=== PATIENT | male | born 1960 | race Caucasian/White ===

== ENCOUNTER → 2018-01-21 19:51 | Emergency (ER) | payer OTHER ==
[~2018-01-21 19:51] MED LIST: diPHENhydraMINE PO* 25 MG PO ONE
--- NOTE | 2018-01-21 21:36 | ED ---
Skin Complaint - HPI Summary HPI Summary: Pt is a y/o male who presents to the ED s/p insect sting. He states 2 days ago he was working on his house when he felt something sting his lower back. The area is red and raised, but not painful. - History of Current Complaint Chief Complaint: EDRashSkinAbscess Time Seen by Provider: 01/21/18 21:05 Stated Complaint: INSECT BITE Hx Obtained From: Patient Onset/Duration: Started Days Ago - 2, Still Present Timing: Constant Current Severity: Mild Pain Intensity: 2 Pain Scale Used: 0-10 Numeric Skin Location: Other: - Lower back Character: Redness, Raised Aggravating Symptom(s): Other: - Insect sting Associated Signs & Symptoms: Negative Related History: Insect Bite/Sting - Allergy/Home Medications Allergies/Adverse Reactions: Allergies Allergy/AdvReac Type Severity Reaction Status Date / Time No Known Allergies Allergy Verified 01/21/18 20:04 PMH/Surg Hx/FS Hx/Imm Hx Endocrine/Hematology History: Reports: Hx Diabetes Cardiovascular History: Denies: Hx Hypertension Infectious Disease History: No Infectious Disease History: Denies: Traveled Outside the [place] in Last 30 Days - Family History Known Family History: Negative: Blood Disorder - Social History Alcohol Use: Occasionally Hx Substance Use: No Substance Use Type: Reports: None Hx Tobacco Use: Yes Smoking Status (MU): Light Every Day Tobacco Smoker Type: Cigars Review of Systems Negative: Fever Positive: Other - Insect sting, red and raised All Other Systems Reviewed And Are Negative: Yes Physical Exam - Summary Physical Exam Summary: Appearance: Well appearing, no pain distress Skin: warm, dry, reflects adequate perfusion, raised erythematous area 2 cm across without warmth on lower back Head/face: normal Eyes: EOMI, FELISA ENT: mucous membranes moist Neck: supple, non-tender Respiratory: CTA, breath sounds present Cardiovascular: RRR, pulses symmetrical Abdomen: non-tender, soft Bowel Sounds: present Musculoskeletal: normal, strength/ROM intact Neuro: normal, sensory motor intact, A&Ox3 Triage Information Reviewed: Yes Vital Signs On Initial Exam: Initial Vitals Temp Pulse Resp BP Pulse Ox 97.9 F 88 20 133/78 95 01/21/18 20:03 01/21/18 20:03 01/21/18 20:03 01/21/18 20:03 01/21/18 20:03 Vital Signs Reviewed: Yes Diagnostics - Vital Signs Vital Signs Temp Pulse Resp BP Pulse Ox 01/21/18 20:03 97.9 F 88 20 133/78 95 - Laboratory Lab Statement: Any lab studies that have been ordered have been reviewed, and results considered in the medical decision making process. Course/Dx - Course Course Of Treatment: Patient reports a bee or wasp and ensure that stung him. He is diabetic. His sugars have not been out of control. He has localized discomfort in the area. No stinger was present. He was treated with topical hydrocortisone and Benadryl. - Diagnoses Provider Diagnoses: Insect bite of lower back with local reaction Discharge - Sign-Out/Discharge Documenting (check all that apply): Patient Departure - Discharge - Discharge Plan Condition: Improved Disposition: HOME Patient Education Materials: Insect Bite or Sting (ED) Referrals: Care [facility] [Outside] [facility] [Outside] Additional Instructions: Use topical hydrocortisone 1% ointment to the area. Return if worse, uncontrolled blood sugars or other concerns. Primary care referral has been given to you. Follow up with your doctor if you have one. - Billing Disposition and Condition Condition: IMPROVED Disposition: Home - Attestation Statements Document Initiated by Scribe: Yes Documenting Scribe: Jessie Arguello Provider For Whom Scribe is Documenting (Include Credential): Kingsley May MD Scribe Attestation: Jessie Lopez, scribed for Kingsley May MD on 01/21/18 at 2236. Scribe Documentation Reviewed: Yes Provider Attestation: The documentation as recorded by the Jessie loera accurately reflects the service I personally performed and the decisions made by Kingsley novak MD
[2018-01-21 21:41] VITALS: BP 125/82
== END | disposition home or self-care (01) ==
LOC: ED 19:51
DX: T63.441A Toxic effect of venom of bees, accidental (unintentional), initial encounter (principal); W57.XXXA Bitten or stung by nonvenomous insect and other nonvenomous arthropods, initial encounter; Y92.9 Unspecified place or not applicable; F17.210 Nicotine dependence, cigarettes, uncomplicated
CPT/HCPCS: 99281; A9270-GY

== ENCOUNTER → 2018-05-09 15:08 | Emergency (ER) | payer OTHER ==
--- NOTE | 2018-05-09 17:18 | ED ---
Upper Extremity Pain - HPI Summary HPI Summary: Patient is a 57-year-old male who presents emergency department for right shoulder pain after mechanical fall that occurred yesterday. Patient states he slipped on ice yesterday and landed onto his right shoulder. He is unaware if he struck his head and does not believe he lost consciousness. Patient today notes significant right shoulder pain with intermittent paresthesias into right hand. He also notes radicular lateral right neck pain from shoulder. He also states he injured his right knee as well. Patient notes chronic neck pain. Pain is worse with movement. Nothing makes symptoms better. Symptoms are mild in severity. - History of Current Complaint Chief Complaint: EDExtremityUpper Stated Complaint: FELL Time Seen by Provider: 05/09/18 15:45 Hx Obtained From: Patient - Allergies/Home Medications Allergies/Adverse Reactions: Allergies Allergy/AdvReac Type Severity Reaction Status Date / Time No Known Allergies Allergy Verified 01/21/18 20:04 PMH/Surg Hx/FS Hx/Imm Hx Previously Healthy: Yes Endocrine/Hematology History: Reports: Hx Diabetes Cardiovascular History: Denies: Hx Hypertension Infectious Disease History: No Infectious Disease History: Denies: Traveled Outside the [place] in Last 30 Days - Family History Known Family History: Negative: Blood Disorder - Social History Occupation: Unemployed Lives: With Family Alcohol Use: Occasionally Hx Substance Use: No Substance Use Type: Reports: None Hx Tobacco Use: Yes Smoking Status (MU): Light Every Day Tobacco Smoker Type: Cigars Review of Systems Cardiovascular: Negative Negative: Palpitations, Chest Pain Respiratory: Negative Negative: Shortness Of Breath Positive: Other - right shoulder and knee pain Positive: Paresthesia. Negative: Headache, Weakness, Numbness, Syncope All Other Systems Reviewed And Are Negative: Yes Physical Exam Triage Information Reviewed: Yes Vital Signs On Initial Exam: Initial Vitals Temp Pulse Resp BP Pulse Ox 97.5 F 77 17 139/85 97 05/09/18 15:38 05/09/18 15:38 05/09/18 15:38 05/09/18 15:38 05/09/18 15:38 Vital Signs Reviewed: Yes Appearance: Positive: Well-Appearing - Pt. sitting in chair in NAD. Skin: Positive: Warm, Dry Head/Face: Positive: Normal Head/Face Inspection Eyes: Positive: Normal, EOMI, FELISA Neck: Positive: Supple, Nontender - No midline tenderness Musculoskeletal: Positive: Other - Pain to palpation of proximal right shoulder and with ROM. 5/5 strength. No sensory deficits. Good radial pulse. Neurological: Positive: Normal, CN Intact II-III Psychiatric: Positive: Affect/Mood Appropriate Diagnostics - Vital Signs Vital Signs Temp Pulse Resp BP Pulse Ox 05/09/18 15:38 97.5 F 77 17 139/85 97 - Laboratory Lab Statement: Any lab studies that have been ordered have been reviewed, and results considered in the medical decision making process. Course/Dx - Course Course Of Treatment: Pt. presenting for right mechanical shoulder and knee pain. Xrays show arthritic changes and small knee effusion without fx or dislocation per radiology. Sling placed for comfort. Ice intermittently. Tylenol or motrin for pain as directed. Advised pt. to only wear sling intermittently. Advised to schedule follow up apt. with orthopedics for further evaluation. Pt. understands and agrees with plan. - Diagnoses Differential Diagnosis/HQI/PQRI: Positive: Contusion, Fracture (Closed), Strain , Sprain Provider Diagnoses: Shoulder injury Discharge - Sign-Out/Discharge Documenting (check all that apply): Patient Departure Patient Received Moderate/Deep Sedation with Procedure: No - Discharge Plan Condition: Good Disposition: HOME Patient Education Materials: Knee Sprain (ED), Rotator Cuff Injury (ED), Shoulder Sprain (ED) Referrals: Rigoberto Thomas MD [Medical Doctor] - Additional Instructions: Call the orthopedic clinic tomorrow to schedule a follow up appointment Wear sling only as needed for short periods of time Gentle shoulder range of motion Ice shoulder and knee intermittently Tylenol or Motrin for pain as directed Return to ER if symptoms change or worsen - Billing Disposition and Condition Condition: GOOD Disposition: Home
[2018-05-09 18:02] VITALS: BP 136/74
== END | disposition home or self-care (01) ==
LOC: ED 15:08
DX: S49.91XA Unspecified injury of right shoulder and upper arm, initial encounter (principal); W00.0XXA Fall on same level due to ice and snow, initial encounter; Y92.9 Unspecified place or not applicable; Y99.0 Civilian activity done for income or pay; M19.011 Primary osteoarthritis, right shoulder; M25.561 Pain in right knee; M25.461 Effusion, right knee; M17.11 Unilateral primary osteoarthritis, right knee; F17.290 Nicotine dependence, other tobacco product, uncomplicated
CPT/HCPCS: 71045; 99282